=== PATIENT | female | born 1995 | race Two or more races ===

== ENCOUNTER 2017-07-26 07:10 | Emergency (ER) | payer OTHER ==
[2017-07-26 07:16] VITALS: RESP 16; TEMP 97.5
--- NOTE | 2017-07-26 08:00 | EDPHY ---
H & P Stated Complaint: Mid abd pain "like hunger pains"x 3 days;loose stool yesterday ;slight nause HPI/ROS: CHIEF COMPLAINT: Abdominal pain, vomiting, diarrhea HISTORY OF PRESENT ILLNESS: The patient is a 22 y/o female complaining of epigastric pain for the last 2-3 days. She complains of associated nausea, vomiting, loss of appetite, and diarrhea. She 3-4 episodes of watery diarrhea yesterday, no blood. She has not had diarrhea today.Her symptoms are worse when her stomach is empty. She has never had these symptoms before. She denies associated fever, dysuria, dyspnea, chest pain, cough, or urinary symptoms. She did have a recent cold that has improved and notes she was in [place] last week. She denies chance of . She is normally healthy. REVIEW OF SYSTEMS: A ten point review of systems was performed and is negative with the exception of the items mentioned in the HPI. Past medical history: Denies Past surgical history: Denies Family history: Noncontributory Social history: Was in [place] last week. 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 Nonsmoker. No alcohol use. General Appearance: Alert. Vital signs reviewed. Blood pressure 99/60. Eyes: Pupils equal and round, no conjunctival injection, no discharge. Anicteric. ENT, Mouth: Mucous membranes are moist, no oropharyngeal erythema or edema. Neck: No lymphadenopathy, supple. Respiratory: Lungs are clear to auscultation; no wheezes, rales, or rhonchi. Cardiovascular: Regular rate and rhythm; no murmur, rub, or gallop. Gastrointestinal: Abdomen is soft with mild midepigastric tenderness, no masses or organomegaly, bowel sounds normal. Skin: Warm and dry, no rashes on exposed skin, normal color. Back: Nontender to palpation over the thoracolumbar spine. No CVAT. Extremities: No lower extremity edema, no calf tenderness or swelling. Neurological: Alert and oriented. Moving all four extremities easily and equally. Psychiatric: Normal affect. - Personal History LMP (Females 10-55): 15-21 Days Ago Current Tetanus Diphtheria and Acellular Pertussis (TDAP): Yes - Medical/Surgical History Hx Asthma: No Hx Chronic Respiratory Disease: No Hx Diabetes: No Hx Cardiac Disease: No Hx Renal Disease: No Hx Cirrhosis: No Hx Alcoholism: No Hx HIV/AIDS: No Hx Splenectomy or Spleen Trauma: No Other PMH: denies - Social History Smoking Status: Never smoked Constitutional: Initial Vital Signs Temperature (C) 36.4 C 07/26/17 07:11 Heart Rate 76 07/26/17 07:11 Respiratory Rate 16 07/26/17 07:11 Blood Pressure 99/69 L 07/26/17 07:11 O2 Sat (%) 98 07/26/17 07:11 O2 Delivery Mode Room Air Allergies/Adverse Reactions: No Known Allergies Allergy (Verified 07/26/17 07:11) Home Medications: Medication Instructions Recorded Omeprazole [Prilosec 20 mg] 20 mg PO DAILY #14 capsule. 07/26/17 Medical Decision Making ED Course/Re-evaluation: This is a healthy 22 y/o female who presents with a 2-3 day history of mid epigastric pain with associated nausea and diarrhea. She has mild mid epigastric tenderness on exam. She is afebrile. Plan for IV, labs, stool sample , and symptom management. 1L IV NS, 4mg IV Zofran, 20mg IV Pepcid, and PO GI cocktail administered. Re-evaluated at 8:50 a.m.. She is resting comfortably and feeling better. No abdominal pain on exam. I have reviewed her labs, all of which are within normal limits. I anticipate that she will be able to return home. I am going to recommend proton pump inhibitor and follow up as needed. If this was a gastroenteritis, it has resolved. 1002: Reevaluated patient. She is feeling improved and has had no vomiting or diarrhea while here. Her abdomen is benign. She feels well enough to go home. Return precautions given. 1 providing instructions about both vomiting and diarrhea, although she had neither while in the emergency department. Differential Diagnosis: Abdominal pain including but not limited to appendicitis, pancreatitis, cholecystitis, peptic ulcer disease/gastritis, enteritis, gastroenteritis, and urinary tract infection. - Data Points Laboratory Results: Laboratory Results 07/26/17 07:50 07/26/17 07:50 Medications Given: Discontinued Medications Al Hydroxide/Mg Hydroxide (Maalox Susp) 30 ml PO ONCE ONE Stop: 07/26/17 08:12 Last Admin: 07/26/17 08:31 Dose: 30 ml Hyoscyamine Sulfate (Levsin, Hyomax-Sl) 0.25 mg PO ONCE ONE Stop: 07/26/17 08:12 Last Admin: 07/26/17 08:32 Dose: 0.25 mg Famotidine/Sodium Chloride (Pepcid 20 Mg (Premix)) 50 mls @ 200 mls/hr IV EDNOW ONE Stop: 07/26/17 08:25 Last Admin: 07/26/17 08:29 Dose: 50 mls Sodium Chloride (Ns) 1,000 mls @ 0 mls/hr IV ONCE ONE PRN Reason: Wide Open Stop: 07/26/17 08:28 Last Admin: 07/26/17 08:32 Dose: 1,000 mls Lidocaine (Lidocaine 2% Viscous) 15 ml PO ONCE ONE Stop: 07/26/17 08:12 Last Admin: 07/26/17 08:31 Dose: 15 ml Ondansetron HCl (Zofran) 4 mg IVP EDNOW ONE Stop: 07/26/17 08:12 Last Admin: 07/26/17 08:27 Dose: 4 mg Departure - Departure Disposition: Home, Routine, Self-Care Clinical Impression: Abdominal pain Qualifiers: Abdominal location: epigastric Qualified Code(s): R10.13 - Epigastric pain Nausea & vomiting Qualifiers: Vomiting type: unspecified Vomiting Intractability: non-intractable Qualified Code(s): R11.2 - Nausea with vomiting, unspecified Diarrhea Qualifiers: Diarrhea type: unspecified type Qualified Code(s): R19.7 - Diarrhea, unspecified Condition: Good Instructions: Gastroesophageal Reflux Disease (ED), Acute Nausea and Vomiting ( ED), Acute Diarrhea (ED), Abdominal Pain (ED) Additional Instructions: 1. Take Prilosec as prescribed. 2. Follow up with your primary care provider for unimproved symptoms over the next 2-3 days. 3. Return to the ED for worsening of condition. Referrals: NONE *PRIMARY CARE P,. [Primary Care Provider] - As per Instructions [facility] [Clinic] - As per Instructions Stand Alone Forms: School Excuse Prescriptions: Omeprazole [Prilosec 20 mg] 20 mg PO DAILY #14 capsule. Report Scribed for: Kitty Jo Report Scribed by: Gloria Smalls Date of Report: 07/26/17 Time of Report: 08:10 Physician Review and Approval Statement: 07/26/17 08:00 Portions of this note were transcribed by the medical insurance claims processor. I, Dr. Kitty Jo, personally performed the history, physical exam, and medical decision- making; and confirmed the accuracy of the information in the transcribed note.
[2017-07-26] MEDS ORDERED: MAG HYDROX/AL HYDROX/SIMETH 30 ML UDCUP PO ONE (08:11)
[2017-07-26] MEDS ORDERED: ONDANSETRON 4 MG/2 ML VIAL IVP ONE (08:11)
[2017-07-26] MEDS ORDERED: FAMOTIDINE 20 MG/NACL 50 ML IV ONE (08:11)
[2017-07-26] MEDS ORDERED: HYOSCYAMINE SULFATE 0.125 MG TAB PO ONE (08:11)
[2017-07-26] MEDS ORDERED: LIDOCAINE 2% VISCOUS 15 ML UDCUP PO ONE (08:11)
[2017-07-26 08:19] LABS: % IMMATURE GRANULYOCYTES 0.4 % (0.0-1.1); ABSOLUTE IMMATURE GRANULOCYTES 0.02 10^3/uL (0.00-0.10); ADD DIFF? NO; ADD MORPH? NO; ADD SCAN? NO; ATYPICAL LYMPHOCYTE FLAG 40 (0-99); FRAGMENT RBC FLAG 0 (0-99); HEMATOCRIT 42.7 % (38.0-47.0); HEMOGLOBIN 14.4 g/dL (12.6-16.3); LEFT SHIFT FLG 0 (0-99); LIPEMIA HEMOLYSIS FLAG 80 (0-99); MEAN CELL HEMOGLOBIN 25.8 pg (27.9-34.1); MEAN CELL HEMOGLOBIN CONCENTR. 33.7 g/dL (32.4-36.7); MEAN CELL VOLUME 76.4 fL (81.5-99.8); MEAN PLATELET VOLUME 11.3 fL (8.7-11.7); PLATELET CLUMPS FLAG 0 (0-99); PLATELET COUNT 222 10^3/uL (150-400); RED BLOOD CELL COUNT 5.59 10^6/uL (4.18-5.33); RED CELL DISTRIBUTION WIDTH 12.7 % (11.5-15.2)
[2017-07-26 08:26] LABS: ALANINE AMINOTRANSFERASE 24 IU/L (9-52); ALBUMIN 4.2 g/dL (3.5-5.0); ALKALINE PHOSPHATASE 62 IU/L (38-126); ANION GAP 14 mEq/L (8-16); ASPARTATE AMINOTRANSFERASE 24 IU/L (14-46); BILIRUBIN,TOTAL 0.9 mg/dL (0.1-1.4); BILIRUBIN-CONJUGATED 0.3 mg/dL (0.0-0.5); BILIRUBIN-UNCONJUGATED 0.6 mg/dL (0.0-1.1); CALCIUM 9.6 mg/dL (8.5-10.4); CARBON DIOXIDE 23 mEq/l (22-31); CHLORIDE 104 mEq/L (97-110); CREATININE 0.6 mg/dL (0.6-1.0); GLOMERULAR FILTRATION RATE > 60; GLUCOSE 91 mg/dL (70-100); SODIUM 141 mEq/L (134-144); TOTAL PROTEIN 7.4 g/dL (6.3-8.2)
[2017-07-26] MEDS ORDERED: NS 1,000 ML IV ONE (08:27)
[2017-07-26 09:21] VITALS: BP 102/78; PULSE 82; O2SAT 97
== END 2017-07-26 10:21 | disposition home or self-care (01) ==
DX: R10.13 Epigastric pain (principal); R11.2 Nausea with vomiting, unspecified; R19.7 Diarrhea, unspecified
CPT/HCPCS: 96365; J2405

== ENCOUNTER 2018-01-30 14:22 | Emergency (ER) | payer OTHER ==
--- NOTE | 2018-01-30 16:30 | EDPHY ---
H & P Stated Complaint: CRACKED BACK YESTERDAY AND NOW HAS PAIN Time Seen by Provider: 01/30/18 16:29 HPI/ROS: HPI: This is a 22-year-old female who presents with Chief Complaint: CRACKED BACK YESTERDAY AND NOW HAS PAIN Location: Left Lower back Quality: Aching pain Duration: Since yesterday around midnight Signs and Symptoms: No bleeding, no radiation, no numbness, no weakness, no tingling, no incontinence, no decreased range of motion, no swelling, + pain Timing: Acute Severity: Mild Context: Patient is a student at [employer] presents with complaints of cracking her back by twisting side to side yesterday evening before bed around midnight. She woke up the morning with left-sided lower lumbar aching persistent nonradiating pain. She is ambulatory without any deficits. Denies any urinary symptoms/incontinence/paresthesias/radiculopathy/ weakness. LMP 1-2 weeks ago. She has tried no dyxi-syc-stdvwop medication. Friend drove patient to the emergency room. Modifying Factors: None Comment: ROS: see HPI Constitutional: No fever, no chills, no weight loss Eyes: No blurred vision Respiratory: No shortness of breath, no cough Cardiovascular: No chest pain Gastrointestinal: No nausea, no vomiting no diarrhea Genitourinary: No dysuria Extremities: No myalgias Neurologic: No weakness, no numbness Skin: No rashes Hematologic: No bruising, no bleeding MEDICAL/SURGICAL/SOCIAL HISTORY: Medical history: Generally healthy. Does not take any regular medications. Surgical history: Denies Social history: Student at [employer]AL: Extremely well-appearing young adult female, awake and alert, no obvious distress HEENT: Atraumatic and normocephalic. NECK: supple, no midline tenderness, flexion 45 degrees, extension 45 degrees, right and left lateral flexion 45 degrees. No meningismus. Cardiovascular: Normal S1/S2, regular rate, regular rhythm, without murmur rub or gallop. PULMONARY/CHEST: Symmetrical and nontender. no crepitus. Clear to auscultation bilaterally. Good air movement. No accessory muscle usage. ABDOMEN: Soft, nondistended, nontender, no ecchymosis. PELVIC: no pain with rocking; bilateral hips flexion 125 degrees, extension 30 degrees, with no pain internal rotation and no pain external rotation. BACK: Left reproducible L4-L5 pinpoint lumbar paraspinous muscle reproducible tenderness; No midline tenderness, no paraspinous spasm, deep tendon reflexes 2/ 2, no pain with straight leg raise. Preserved flexion, extension, bilateral lateral rotation. EXTREMITIES: 2/2 pulses, strength 5/5, DIP/PIP/MCP flexion/extension intact with good light touch sensation. no deformities, no clubbing, no cyanosis or edema. NEUROLOGICAL: no focal neuro deficits. GCS 15. Light touch sensation intact. SKIN: Warm and dry, no erythema. no rash. Good capillary refill. Source: Patient Exam Limitations: No limitations - Personal History LMP (Females 10-55): 8-14 Days Ago Current Tetanus/Diphtheria Vaccine: Yes Current Tetanus Diphtheria and Acellular Pertussis (TDAP): Yes - Medical/Surgical History Hx Asthma: No Hx Chronic Respiratory Disease: No Hx Diabetes: No Hx Cardiac Disease: No Hx Renal Disease: No Hx Cirrhosis: No Hx Alcoholism: No Hx HIV/AIDS: No Hx Splenectomy or Spleen Trauma: No Other PMH: denies - Social History Smoking Status: Never smoked Constitutional: Initial Vital Signs Temperature (C) 36.9 C 01/30/18 14:28 Heart Rate 92 01/30/18 14:28 Respiratory Rate 16 01/30/18 14:28 Blood Pressure 102/70 01/30/18 14:28 O2 Sat (%) 97 01/30/18 14:28 O2 Delivery Mode Room Air Allergies/Adverse Reactions: No Known Allergies Allergy (Verified 07/26/17 07:11) Home Medications: Medication Instructions Recorded Cyclobenzaprine [Flexeril 10 MG 10 mg PO Q8 PRN #10 tab 01/30/18 (*)] Medical Decision Making - Diagnostics Imaging Results: Imaging Impressions Lumbar Spine X-Ray 01/30/18 16:31 Impression: Normal limited lumbar spine series. ED Course/Re-evaluation: No signs of neurovascular compromise/tenting of skin/compartment syndrome/ extremities and joints examined above and below area of concern and are neurovascularly intact. Lumbar sacral x-rays my read shows no stenosis/fracture. + stool burden Given p.o. Flexeril and Lidoderm patch with adequate relief of pain Reassessed patient; pain improved Discharge home with rice therapy This patient was seen under the supervision of my primary supervising physician. I evaluated care for this patient independently. Differential Diagnosis: Back pain including but not limited to muscular pain, herniated disc, spine fracture, intra-abdominal causes and urinary tract infection. - Data Points Medications Given: Discontinued Medications Cyclobenzaprine HCl (Flexeril) 10 mg PO EDNOW ONE Stop: 01/30/18 16:32 Last Admin: 01/30/18 16:37 Dose: 10 mg Miscellaneous Medication (Icy Hot Lidocaine/Menthol 4%/1% Patch) 1 patch TD EDNOW ONE Stop: 01/30/18 16:32 Last Admin: 01/30/18 16:37 Dose: 1 patch Departure - Departure Disposition: Home, Routine, Self-Care Clinical Impression: Strain of lumbar paraspinous muscle Qualifiers: Encounter type: initial encounter Qualified Code(s): S39.012A - Strain of muscle, fascia and tendon of lower back, initial encounter Condition: Good Instructions: Low Back Strain (ED), R.I.C.E. Treatment (ED) Additional Instructions: Take Tylenol 650 mg every 4 hours and/or Ibuprofen 600 mg every 8 hours with food as needed for pain. Use Flexeril every 8 hr as needed for muscle spasm. Perform gentle stretching exercises. No heavy lifting until you are pain-free. The x-rays obtained in the emergency department today demonstrate no evidence of an obvious fracture. ' If symptoms persist greater than 7-10 days, please follow-up with your primary care provider for re-evaluation and possible MRI Lumbar back outpatient. Return to the ER immediately if you have new or worsening back pain, fevers/ chills, flu like symptoms, incontinence or inability to urinate or defecate, weakness, paralysis, or any other symptom that concerns you. Referrals: [facility],. [Clinic] - As per Instructions Prescriptions: Cyclobenzaprine [Flexeril 10 MG (*)] 10 mg PO Q8 PRN #10 tab PRN Reason: Spasms
[2018-01-30] MEDS ORDERED: LIDOCAINE 4%/MENTHOL 1% PATCH TD ONE (16:31)
[2018-01-30] MEDS ORDERED: CYCLOBENZAPRINE 10 MG TAB PO ONE (16:31)
[2018-01-30 17:20] VITALS: BP 99/69; PULSE 94; RESP 18; TEMP 98.1; O2SAT 95
[2018-01-30] MEDS ORDERED: PATCH REMOVAL 1 EA PATCH TD SCH (21:00)
== END 2018-01-30 17:22 | disposition home or self-care (01) ==
DX: S39.012A Strain of muscle, fascia and tendon of lower back, initial encounter (principal); X58.XXXA Exposure to other specified factors, initial encounter